=== PATIENT | female | born 1990 | race Caucasian/White ===

== ENCOUNTER 2018-05-13 12:47 | Emergency (ER) | payer OTHER ==
[2018-05-13 13:15] VITALS: BP 114/62
--- NOTE | 2018-05-13 13:33 | UC ---
UC General HPI - HPI Summary HPI Summary: PT C/O PAIN IN ARCH AND FRONT OF LEFT HEEL SINCE YESTERDAY. HX PLANTAR FASCIITIS AND THIS FEELS THE SAME. NO INJURY. - History of Current Complaint Chief Complaint: UCLowerExtremity Stated Complaint: LEFT FOOT PAIN Time Seen by Provider: 05/13/18 13:24 Hx Obtained From: Patient Hx Last Menstrual Period: 04/12/18 Onset/Duration: Gradual Onset Timing: Constant Pain Intensity: 9 Aggravating: WALKING Associated Signs & Symptoms: Negative: Edema, Fever, Weakness - Allergy/Home Medications Allergies/Adverse Reactions: Allergies Allergy/AdvReac Type Severity Reaction Status Date / Time latex Allergy Hives Verified 05/13/18 13:05 Penicillins AdvReac See Comment Verified 05/13/18 13:05 Home Medications: Home Medications Buprenorp/Nalox 8-2 MG FILM [Suboxone] 1 mis SL BID 05/13/18 [History Confirmed 05/13/18] Omeprazole 20 mg PO DAILY PRN 05/13/18 [History Confirmed 05/13/18] Prazosin CAP* [Minipress CAP*] 1 mg PO BID 05/13/18 [History Confirmed 05/13/18] Triamcinolone NASAL SPRAY* [Nasacort AQ Nasal [place]*] 1 puff NASAL DAILY [History Confirmed 05/13/18] Varenicline (NF) [Chantix 1 MG TAB (NF)] 2 mg PO BID 05/13/18 [History Confirmed 05/13/18] buPROPion HCl [Wellbutrin Sr] 150 mg PO DAILY 05/13/18 [History Confirmed ] celeCOXIB CAP* [CeleBREX CAP*] 100 mg PO BID 05/13/18 [History Confirmed ] hydrOXYzine HCL TAB* [Atarax 25 MG TAB*] 25 mg PO TID PRN 05/13/18 [History Confirmed 05/13/18] lamoTRIgine [Lamotrigine ER] 100 mg PO DAILY 05/13/18 [History Confirmed ] traZODone TAB* [Desyrel TAB*] 150 mg PO BEDTIME 05/13/18 [History Confirmed ] PMH/Surg Hx/FS Hx/Imm Hx - Additional Past Medical History Additional PMH: ADDICTION, IN RECOVERY, MENISCAL TEAR R KNEE - Surgical History Surgical History: Yes Surgery Procedure, Year, and Place: 2010 cystecomy left ovary; right meniscus orthoscopic surgery 03/2006 - Family History Known Family History: Positive: Non-Contributory - Social History Lives: [facility] Alcohol Use: None 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 Smoking Status (MU): Light Every Day Tobacco Smoker Type: Cigarettes Amount Used/How Often: 3 cigarettes Length of Time of Smoking/Using Tobacco: since age 16 Household Exposure Type: Cigarettes Review of Systems All Other Systems Reviewed And Are Negative: Yes Constitutional: Positive: Negative Skin: Positive: Negative Eyes: Positive: Negative ENT: Positive: Negative Respiratory: Positive: Negative Cardiovascular: Positive: Negative Gastrointestinal: Positive: Negative Genitourinary: Positive: Negative Motor: Negative: Decreased ROM Neurovascular: Positive: Negative Musculoskeletal: Positive: Other: - L ARCH PAIN, R KNEE PAIN Neurological: Negative: Weakness, Paresthesia, Numbness Psychological: Positive: Negative Physical Exam Triage Information Reviewed: Yes Appearance: Well-Appearing Vital Signs: Initial Vital Signs Temp 97.9 F 05/13/18 13:09 Pulse 66 05/13/18 13:09 Resp 18 05/13/18 13:09 BP 114/62 05/13/18 13:09 Pulse Ox 100 05/13/18 13:09 Vital Signs Reviewed: Yes Eyes: Positive: Conjunctiva Clear ENT: Positive: Normal ENT inspection Neck: Positive: Supple Respiratory: Positive: Lungs clear, Normal breath sounds Cardiovascular: Positive: RRR, No Murmur Abdomen Description: Positive: Nontender Bowel Sounds: Positive: Present Musculoskeletal: Positive: Other: - RLE: KNEE IMMOBLIZER IN PLACE. LLE: HIP, KNEE, ACHILLES ARE NON TENDER. FOOT HAS NO GROSS DEFORMITY, SWELLING OR DISCOLORATION. IT IS TENDER ALONG THE ARCH AND ANTERIOR HEEL. FOOT HAS FULL S/V/ M FUNCTION. Neurological: Positive: Alert Psychological: Positive: Age Appropriate Behavior Skin Exam: Normal Skin: Negative: Rashes Course/Dx - Differential Dx - Multi-Symptom Differential Diagnoses: Other - NO CONCERN FOR FX OR INFECTION. - Diagnoses Provider Diagnosis: Plantar fasciitis of left foot Discharge - Sign-Out/Discharge Documenting (check all that apply): Patient Departure All imaging exams completed and their final reports reviewed: No Studies - Discharge Plan Condition: Stable Disposition: HOME Patient Education Materials: Plantar Fasciitis Exercises (GEN), Plantar Fasciitis (ED) Referrals: Jacquelyn Santiago MD [Primary Care Provider] - Additional Instructions: FOLLOW UP WITH YOUR ORTHOPEDIST AT [facility] TOMORROW SCHEDULED. CONTINUE THE CELEBREX. CONSIDER AN OVER THE COUNTER INSERT FOR PLANTAR FASCIITIS. - Billing Disposition and Condition Condition: STABLE Disposition: Home
== END 2018-05-13 13:47 | disposition home or self-care (01) ==
LOC: UCCORT 12:47
DX: M72.2 Plantar fascial fibromatosis (principal); F17.210 Nicotine dependence, cigarettes, uncomplicated; Z91.040 Latex allergy status; Z88.0 Allergy status to penicillin; Z98.890 Other specified postprocedural states
CPT/HCPCS: 99201; G0463